=== PATIENT | female | born 1980 | race Caucasian/White ===

== ENCOUNTER → 2017-07-21 15:33 | Outpatient (CLI) | payer OTHER, SELFPAY ==
--- NOTE | 2017-07-21 15:35 | MM_ITS ---
MM Dig screening mamm BI w/CAD CAD Screening ORDERING PHYSICIAN : Martinez Gupta MD PATIENT AGE: 36 years GENDER: Female COMPARISON: Previous mammograms: July 20162015November 2013 INDICATION: Routine screening. No hormones. No new complaints. Previous stereotactic biopsy right breast. Family history. Maternal grandmother breast cancer TECHNIQUE: Standard CC and MLO images were obtained. R2 CAD reviewed. FINDINGS: Low-density breast with generalized moderate fatty replacement. Minimal residual fibroglandular elements.. No significant changes prior study.. No dominant mass nor suspicious calcifications. CAD computer review highlights no areas of concern RIGHT BREAST:Stable appearanceVery minor subtle nodularity possibly due to dermal features again seen just superior to the right breast. These less evident than prior studies 2013 2016.. LEFT BREAST: Nodularity at the left breast laterally has been seen before and unchanged since 2014 exam . Bilateral follow-up in one year IMPRESSION: . Stable bilateral mammogram No new areas of significant concern BI-RADS Category: 2 Benign Finding(s) RECOMMENDED FOLLOW-UP: 1YR - 1 YEAR FOLLOW-UP (A letter has been sent to the patient regarding results of the study.)
== END ==
PROVIDERS: Family Provider Emergency Medicine; PCP Physician Assistant; Visit Provider Obstetrics & Gynecology
DX: Z12.31 Encounter for screening mammogram for malignant neoplasm of breast (principal)
CPT/HCPCS: 77067

== ENCOUNTER → 2018-01-10 18:57 | Outpatient (CLI) | payer OTHER, SELFPAY | PROVIDERS: Visit Provider Nurse Practitioner Family | DX: R30.9 Painful micturition, unspecified (principal) | CPT/HCPCS: 87086; 87088; 87186 ==

== ENCOUNTER → 2018-03-15 11:47 | Outpatient (CLI) | payer OTHER, SELFPAY ==
--- NOTE | 2018-03-15 11:52 | XR_ITS ---
EXAM: XR lumbar spine 6V w bending HISTORY: ITS.REASON: back pain ORDERING PHYSICIAN: Taylor Velázquez PATIENT AGE: 37 years COMPARISON: None FINDINGS: Normal alignment. No fracture or dislocation. No lytic or blastic change. There is mild degenerative disc disease at L4-L5 and L5-S1. There is also mild degenerative disc disease at T11-T12 and T12-L1. Flexion and extension views show no abnormal subluxation. Bilateral tubal ligation clips are present. IMPRESSION: Degenerative disc disease T11-T12, T12-L1, L4-L5, and L5-S1
== END ==
PROVIDERS: PCP Emergency Medicine; Visit Provider Nurse Practitioner Family
DX: M54.5 Low back pain (principal)
CPT/HCPCS: 72114

== ENCOUNTER → 2019-01-11 16:48 | Outpatient (CLI) | payer OTHER, SELFPAY ==
--- NOTE | 2019-01-11 16:49 | MM_ITS ---
PROCEDURE: MM DIG SCREENING MAMM BI W/CAD CLINICAL INDICATION: screening There is a history of breast cancer in the patient's maternal grandmother. There has been a previous biopsy right breast for benign disease. COMPARISON: DMDB DIG MAMM-DX TERESA from 07/19/2015 [facility]B DIG MAMM-SCREEN [facility] W/CAD from 07/20/2016 [facility] MM Dig screening mamm BI w/CAD from 07/21/2017 TECHNIQUE: Standard CC and MLO images were obtained. R2 CAD reviewed. FINDINGS: The breasts are composed primarily of fat with minimal scattered fibroglandular densities in each breast. There is no suspicious lesion in either breast and no suspicious microcalcifications. IMPRESSION: Fatty type breast parenchyma with no suspicious lesions seen BI-RAD Category: 1 Negative FOLLOW-UP: 1YR 1 Year Follow-up (A letter has been sent to the patient regarding results of the study.) Dictated by: Dr. Jorge Higginbotham MD 01/13/2019 13:[address] Jorge Higginbotham MD in [place] 01/13/2019 13:28
== END ==
PROVIDERS: PCP Physician Assistant; Visit Provider Obstetrics & Gynecology
DX: Z12.31 Encounter for screening mammogram for malignant neoplasm of breast (principal)
CPT/HCPCS: 77067

== ENCOUNTER → 2020-01-22 17:47 | Outpatient (CLI) | payer OTHER, SELFPAY ==
[2020-01-22 17:50] LABS: Microscopic, Urine URINE MICROSCOPIC (MICROSCOPIC)
[2020-01-22 18:16] LABS: Appearance,Urine CLEAR (Clear); Bilirubin,Urine Negative (Negative); Blood, Urine TRACE-I (Negative); Color,Urine YELLOW (Yellow); Glucose,Urine (UA) Negative (Negative); Ketones,Urine Negative (Negative); Leukocyte Esterase,Urine Negative (Negative); Nitrate,Urine Negative (Negative); Protein,Urine Negative (Negative); Urobilinogen,Urine 0.2 EU/dl (0.2)
[2020-01-22 18:55] LABS: Bacteria,Urine 3+ /lpf; WBC,Urine Occasional #/hpf (0-3)
== END ==
LOC: LAB 17:48 → LAB.DROPOF 01-23 08:33
PROVIDERS: Visit Provider Nurse Practitioner Obstetrics & Gynecology
DX: Z01.419 Encounter for gynecological examination (general) (routine) without abnormal findings (principal)
CPT/HCPCS: 81001; 87086; 87088; 87186

== ENCOUNTER → 2020-03-07 15:31 | Outpatient (CLI) | payer OTHER, SELFPAY | PROVIDERS: PCP Physician Assistant; Visit Provider Physician Assistant | DX: Z20.822 Contact with and (suspected) exposure to COVID-19 (principal) | CPT/HCPCS: U0003 ==

== ENCOUNTER 2020-05-10 14:37 | Emergency (ER) | payer OTHER, SELFPAY ==
[2020-05-10 15:01] VITALS: BP 130/86; PULSE 100; RESP 16; TEMP 36.8; O2SAT 99; BMI 60.4
--- NOTE | 2020-05-10 15:21 | HMH.EDUTC ---
[facility] [place] Disposition Clinical Impression: Herpes zoster Qualifiers: Herpes zoster complications: without complications Qualified Code(s): B02.9 - Zoster without complications Disposition: Home, Self-Care Condition on Discharge: Good Instructions: Shingles, DI for Shingles Additional Instructions: Take the medications as directed. Follow up with your primary care doctor. Keep the rash covered ? Do not touch or scratch the rash ? Wash your hands often ? Until your rash develops scabs, avoid contact with o women who have never had chickenpox or the chickenpox vaccine; o Premature or low weight infants; and o People with weakened immune systems (such as those with HIV) GO TO THE ER FOR ANY WORSENING SYMPTOMS OR CONCERNS Prescriptions: Ibuprofen [Ibuprofen 800mg Tablet] 800 mg PO Q8HP PRN #30 tab PRN Reason: Moderate Pain Transmission Status: Received by [id number] Acyclovir [Acyclovir 800mg tab] 800 mg PO 5XDAY 7 Days #35 tab Transmission Status: Received by [id number] predniSONE [Deltasone 10mg tablet] 10 mg PO DAILY 9 Days #21 tab Transmission Status: Received by [id number] Referrals: Romulo Noyola MD [Staff Physician] - Time of Disposition: 15:32 Medical Decision Making - Medical Records Medical records reviewed: No: I reviewed the patient's medical records. - Richar Inquiry Pt receiving controlled substance: No Vital Signs: 05/10/20 15:01 05/10/20 15:35 Temperature 98.2 F 98 F Temperature Source Oral Pulse Rate 99 H Pulse Rate [Right] 100 H Respiratory Rate 16 18 Blood Pressure 132/87 Blood Pressure [Right Arm] 130/86 Blood Pressure Mean [Right Arm] 100 Blood Pressure Source [Right Arm] Automatic Cuff Blood Pressure Position [Right Arm] Sitting 02 Sat by Pulse Oximetry 99 Oxygen Delivery Method Room Air [facility] [place] HPI - General Stated complaint: possible shingles Time Seen by Provider: 05/10/20 15:21 Mode of Arrival: Ambulatory Source of Information: Patient Limitations: No Limitations Description of Symptoms (Recalled from Triage Doc. by RN): pt has a rash under her left breast in the shap of a [place] about the size of a baseball. its flat and red. pt states it does not itch and it is not painful. HEENT Symptoms (Recalled from RN notes): No Resp Symptoms (Recalled from RN notes): No Skin Symptoms (Recalled from RN notes): Yes (rash under left breast) MS Symptoms (Recalled from RN notes): No Functional Status (Recalled from RN notes): na - History of Present Illness Provider Complaint: She states that she has had a rash on her left flank for the past 2 days. She denies pain at the site, but she has had tingling at the site. - Related Data Previous Rx's Medication Instructions Recorded Acyclovir [Acyclovir 800mg tab] 800 mg PO 5XDAY 7 Days #35 tab 05/10/20 Ibuprofen [Ibuprofen 800mg 800 mg PO Q8HP PRN #30 tab 05/10/20 Tablet] predniSONE [Deltasone 10mg tablet] 10 mg PO DAILY 9 Days #21 tab 05/10/20 Allergies Allergy/AdvReac Type Severity Reaction Status Date / Time diclofenac [From [employer]throte[employer]] Allergy Unknown I-HIVES Verified 04/17/20 15:51 misoprostol [From [employer]] Allergy Unknown I-HIVES Verified 04/17/20 15:51 - Worker's Comp Is this a Worker's Comp case?: No [facility] History - Hepatitis A Screen Drug use history?: No High risk sexual behaviors?: No History of sexually transmitted infection?: No Currently employed?: No Childcare worker?: No Do you have indoor plumbing?: Yes Do you have electricity?: Yes Attestation statement:: This patient has been screened for Hepatitis A risk factors. I have reviewed the patient's past medical history: Yes Other Medical History: Reports: Other Other Surgeries: Yes: Cholecystectomy, Tubal Ligation Amputation: No Fractures: No Comment: Colonoscopy 1999. BTL (clips) 2001. Lap Cholecystectomy 2016 - Social History Smoking Status: Current ev
[2020-05-10 15:35] VITALS: BP 132/87; PULSE 99; RESP 18; TEMP 36.6
== END 2020-05-10 15:35 | disposition home or self-care (01) ==
PROVIDERS: Emergency Provider Nurse Practitioner Family; PCP Physician Assistant
DX: B02.9 Zoster without complications (principal); F17.210 Nicotine dependence, cigarettes, uncomplicated
CPT/HCPCS: 99202; G0463

== ENCOUNTER 2020-10-01 15:32 | Emergency (ER) | payer OTHER, SELFPAY ==
[2020-10-01 17:38] VITALS: BP 135/103; PULSE 86; RESP 18; TEMP 36.8; O2SAT 97; BMI 39.9
--- NOTE | 2020-10-01 17:56 | HMH.EDUTC ---
[facility] [place] Clinical Impression: Exposure to COVID-19 virus Disposition: Home, Self-Care Condition on Discharge: Good Instructions: DI for COVID-19 (Suspected or Confirmed ), Preventing the Spread of Coronavirus Discharge Instructions Additional Instructions: Drink plenty of fluids. Take tylenol for pain or fever. Return if you begin to have difficulty breathing. Follow up with your regular doctor. GO TO THE ER FOR ANY WORSENING SYMPTOMS Quarantine until you know the results of your covid-19 test. If it is positive, the health department should call you and give you further instructions about your length of Quarantine and other things. Notify your school or workplace of your results and follow their instructions regarding return to work/school. Referrals: Lorrie Medeiros PA [Primary Care Provider] - Time of Disposition: 17:57 Medical Decision Making - Medical Records Medical records reviewed: No: I reviewed the patient's medical records. - Richar Inquiry Pt receiving controlled substance: No Vital Signs: 10/01/20 17:38 10/01/20 18:20 Temperature 98.3 F 98.3 F Temperature Source Oral Pulse Rate 86 Pulse Rate [Left] 86 Respiratory Rate 18 12 Blood Pressure 132/97 H Blood Pressure [Right Arm] 135/103 H Blood Pressure Mean [Right Arm] 113 02 Sat by Pulse Oximetry 97 Orders (Tests/Meds): ORDERS Category Date Time Status Covid-19 Nasal PCR ([facility]) Routine Lab 10/01/20 17:37 Received [facility] [place] HPI - General Stated complaint: covid exposure, no symptoms Time Seen by Provider: 10/01/20 17:40 Mode of Arrival: Ambulatory Source of Information: Patient Limitations: No Limitations Description of Symptoms (Recalled from Triage Doc. by RN): pt wants a covid test. pt is asymptomatic. HEENT Symptoms (Recalled from RN notes): No Resp Symptoms (Recalled from RN notes): No Skin Symptoms (Recalled from RN notes): No MS Symptoms (Recalled from RN notes): No Functional Status (Recalled from RN notes): na - History of Present Illness Provider Complaint: She was exposed to covid-19 around 4 days ago. She denies any symptoms so far. - Related Data Previous Rx's Medication Instructions Recorded Ibuprofen [Ibuprofen 800mg 800 mg PO Q8HP PRN #30 tab 05/10/20 Tablet] Allergies Allergy/AdvReac Type Severity Reaction Status Date / Time diclofenac [From [employer]throtec] Allergy Unknown I-HIVES Verified 09/18/20 17:03 misoprostol [From [employer]th[employer]] Allergy Unknown I-HIVES Verified 09/18/20 17:03 - Worker's Comp Is this a Worker's Comp case?: No [facility] History - Hepatitis A Screen Drug use history?: No High risk sexual behaviors?: No History of sexually transmitted infection?: No Currently employed?: No Childcare worker?: No Do you have indoor plumbing?: Yes Do you have electricity?: Yes Attestation statement:: This patient has been screened for Hepatitis A risk factors. I have reviewed the patient's past medical history: Yes Other Medical History: Reports: Other Other Surgeries: Yes: Cholecystectomy, Tubal Ligation Amputation: No Fractures: No Comment: Colonoscopy 1999. BTL (clips) 2001. Lap Cholecystectomy 2015 - Social History Smoking Status: Current every day smoker Tobacco Type: cigarettes # Packs/Day (cigarettes): 1 Alcohol Intake: never Alcohol Intake Frequency:: other Substance Use Type: denies use Occupational Status: employed Household Members: family Family Hx:: No significant family history RAILROAD OPERATING ENGINEER history: Tubal Ligation Comment: #1 1998, , male, No complications, bottle, 10 lbs. 4 oz., 20 1/4 long.. #2 2001, , Female, no complications, Bottle, 10 lb. 6 oz. 21.5 long. ROS Obtained: Yes All systems reviewed & no additional complaints - Constitutional Constitutional: Reports system reviewed and no additional complaints, except as docu - Eyes Eyes: Reports system reviewed and no additional complaints, exc
[2020-10-01 18:20] VITALS: BP 132/97; PULSE 86; RESP 12; TEMP 36.8
== END 2020-10-01 18:20 | disposition home or self-care (01) ==
PROVIDERS: Emergency Provider Nurse Practitioner Family; PCP Physician Assistant
DX: Z20.822 Contact with and (suspected) exposure to COVID-19 (principal); F17.210 Nicotine dependence, cigarettes, uncomplicated
CPT/HCPCS: 99202; G0463; U0003

== ENCOUNTER → 2020-10-17 18:45 | Outpatient (CLI) | payer OTHER, SELFPAY ==
[2020-10-17 19:06] LABS: Basophils # 0.1 K/mm3 (0-0.2); Basophils % 0.7 % (0.1-2.0); Eosinophils # 0.2 K/mm3 (0.0-0.4); Hematocrit 42.5 % (37.0-47.0); Hemoglobin 13.9 g/dL (12.2-16.2); Lymphocytes # 2.4 K/mm3 (0.7-4.5); Lymphocytes % 19.8 % (10-50); Mean Corpuscular HGB Conc 32.6 g/dL (31.8-35.4); Mean Corpuscular Hemoglobin 28.7 pg (27.0-31.2); Mean Corpuscular Volume 87.9 fl (81-99); Monocytes # 0.6 K/mm3 (0.1-1.0); Neutrophils # 8.7 K/mm3 (1.8-7.8); Neutrophils % 72.5 % (37.0-80.0); Platelet Count 395 K/mm3 (142-424); Red Blood Count 4.83 M/mm3 (4.20-5.40); Red Cell Distribution Width 13.4 % (11.5-17.5)
[2020-10-17 20:35] LABS: Alanine Aminotransferase 16 U/L (12-78); Albumin Level 4.5 g/dl (3.5-5.0); Albumin/Globulin Ratio 1.6 (1.1-1.8); Alkaline Phosphatase 90 U/L (38-126); Anion Gap 17.3 mEq/L (5-15); Aspartate Amino Transferase 22 U/L (14-36); Bilirubin,Direct 0.1 mg/dl (0.0-0.4); Bilirubin,Indirect 0.2 mg/dL (0.0-0.9); Bilirubin,Total 0.3 mg/dl (0.2-1.3); Bilirubin,Unconjugated 0.2 mg/dL (0.0-1.1); Blood Urea Nitrogen 21 mg/dl (7-17); Calcium 8.9 mg/dl (8.4-10.2); Carbon Dioxide 21 mmol/L (22.0-30.0); Chloride 104 mmol/L (98-107); Chol/HDL Ratio 3.9 (1-3.5); Cholesterol 185 mg/dl (140-200); Estimated Glomerular Filt Rate 69 ml/min (>60); GFR (African American) 83 ML/MIN (>60); Globulin 2.9 g/dL (1.3-3.2); Glucose 75 mg/dl (74-100); HDL Cholesterol 47 mg/dl (40-60); Potassium 4.3 mmoL/L (3.5-5.1); Sodium 138 mmol/L (136-145); Total Protein,Serum 7.4 g/dl (6.3-8.2); Triglycerides 89 mg/dl (30-150); VLDL Cholesterol 18 mg/dL (0-40)
[2020-10-17 20:47] LABS: Direct LDL Cholesterol 116.46 mg/dL (100-129)
[2020-10-17 20:52] LABS: 25-OH Vitamin D, Total 41.6 ng/mL (30-100)
[2020-10-17 20:53] LABS: T4 (Thyroxine) 10.4 ug/dl (5.53-11.0)
[2020-10-17 21:06] LABS: Thyroid Stimulating Hormone 1.11 uIU/mL (0.465-4.68)
== END ==
PROVIDERS: Visit Provider Nurse Practitioner Family
DX: R10.11 Right upper quadrant pain (principal); R11.0 Nausea; E66.9 Obesity, unspecified; Z68.41 Body mass index [BMI] 40.0-44.9, adult
CPT/HCPCS: 80053; 80061; 80076; 82306; 84436; 84443; 85025

== ENCOUNTER → 2020-11-18 15:29 | Outpatient (CLI) | payer OTHER, SELFPAY | PROVIDERS: PCP Physician Assistant; Visit Provider Nurse Practitioner | DX: Z20.822 Contact with and (suspected) exposure to COVID-19 (principal); U07.1 COVID-19 | CPT/HCPCS: C9803; U0003; U0005 ==

== ENCOUNTER → 2020-12-17 15:21 | Outpatient (CLI) | payer OTHER, SELFPAY ==
--- NOTE | 2020-12-17 15:21 | US_ITS ---
PROCEDURE: US TRANSVAGINAL CLINICAL INDICATION: right ovary mass COMPARISON: No exams were available for comparison FINDINGS: The uterus is 7 x 4 x 5 cm with a combined endometrial thickness mm. No uterine mass evident. Left ovary is 2 x 0.6 cm has unremarkable appearance. The right ovary is 2.2 point cm and contains a 1.8 cm cyst. Low level echoes are present within the cyst IMPRESSION: 2 cm right ovarian cyst. Low level echoes are present suggesting hemorrhagic cyst. Consider 3 month follow-up to confirm resolution. Most recent CT is not available at this institution for comparison. Dictated by: Kike Alejandra MD 12/17/2020 19:43 Kike Alejandra MD in [place] 12/17/2020 19:43
== END ==
PROVIDERS: PCP Physician Assistant; Visit Provider Nurse Practitioner Family
DX: N83.8 Other noninflammatory disorders of ovary, fallopian tube and broad ligament (principal)
CPT/HCPCS: 76830

== ENCOUNTER → 2021-02-25 16:59 | Outpatient (CLI) | payer OTHER, SELFPAY ==
--- NOTE | 2021-02-25 17:02 | XR_ITS ---
PROCEDURE INFORMATION: Exam: XR Right Foot Complete; Alignment Exam date and time: 02/25/2021 5:02 PM Age: 40 years old Clinical indication: Pain; Foot; Right; Additional info: Bilat feet pain TECHNIQUE: Imaging protocol: XR Right foot. Views: 3 or more views. COMPARISON: No relevant prior studies available. FINDINGS: Bones/joints: No acute fracture or dislocation. Plantar and Achilles calcaneal spurs. Mild hallux valgus, with 1st metatarsophalangeal angle of approximately 18 degrees, and slightly increased intermetatarsal angle of 13 degrees. No significant arthritic deformities at the 1st MTP joint. Minimal 1st metatarsal head bunion formation. Type 1 accessory navicular ossicle.There are no lytic skeletal lesions seen. Normal calcaneal pitch approximate 21 degrees. Soft tissues: No acute findings. No radiopaque foreign bodies seen. IMPRESSION: 1. Mild hallux valgus, with minimal 1st metatarsal head bunion formation. 2. Plantar and Achilles calcaneal spurs, correlate for history of plantar fasciitis or Achilles tendinopathy. 3. No acute fracture or dislocation.
--- NOTE | 2021-02-25 17:02 | XR_ITS ---
PROCEDURE INFORMATION: Exam: XR Left Foot Complete; Alignment Exam date and time: 02/25/2021 5:02 PM Age: 40 years old Clinical indication: Pain; Foot; Left; Additional info: Feet pain TECHNIQUE: Imaging protocol: XR Left foot. Views: 3 or more views. COMPARISON: No relevant prior studies available. FINDINGS: Bones/joints: There is a bipartite medial hallux sesamoid, which could be developmental versus sesamoid stress fracture of indeterminate age. No other fracture or dislocation. There is a mild hallux valgus deformity, with 1st metatarsophalangeal angle of approximately 23 degrees. Slightly elevated 1st intermetatarsal angle of 14 degrees. There is mild 1st metatarsal head bunion formation. There is slight arthritis at the 1st MTP joint with small periarticular spurs, slight lateral joint space narrowing. There is an 8 mm accessory navicular ossicle. There is moderate plantar calcaneal spur and minimal Achilles calcaneal spur. Calcaneal pitch of approximately 18 degrees is within the lower limits of normal.There are no lytic skeletal lesions seen. Soft tissues: No acute findings.No radiopaque foreign bodies seen. IMPRESSION: 1. Mild hallux valgus, with 1st metatarsal head bunion formation, and slight arthritis of the 1st MTP joint. 2. A bipartite medial hallux sesamoid could be developmental, versus stress fracture of indeterminate age. 3. Plantar and Achilles calcaneal spurs, correlate for history of plantar fasciitis or Achilles tendinopathy.
== END ==
PROVIDERS: PCP Emergency Medicine; Visit Provider Nurse Practitioner Family
DX: M79.671 Pain in right foot (principal); M79.672 Pain in left foot
CPT/HCPCS: 73630

== ENCOUNTER → 2021-09-02 09:27 | Outpatient (CLI) | payer OTHER, SELFPAY ==
[2021-09-02 09:53] LABS: Basophils # 0.1 K/mm3 (0-0.2); Basophils % 0.9 % (0.1-2.0); Eosinophils # 0.2 K/mm3 (0.0-0.4); Eosinophils % 2.2 % (0.1-12.0); Hematocrit 40.1 % (37.0-47.0); Hemoglobin 13.6 g/dL (12.2-16.2); Lymphocytes # 1.6 K/mm3 (0.7-4.5); Lymphocytes % 18.4 % (10-50); Mean Corpuscular Hemoglobin 29.2 pg (27.0-31.2); Mean Platelet Volume 6.7 fl (7.4-10.4); Monocytes # 0.4 K/mm3 (0.1-1.0); Monocytes % 4.6 % (1.7-9.3); Neutrophils # 6.5 K/mm3 (1.8-7.8); Neutrophils % 73.8 % (37.0-80.0); Platelet Count 359 K/mm3 (142-424); Red Blood Count 4.66 M/mm3 (4.20-5.40); Red Cell Distribution Width 13.2 % (11.5-17.5); White Blood Count 8.8 K/mm3 (4.8-10.8)
[2021-09-02 10:33] LABS: Anion Gap 9.3 mEq/L (5-15); Blood Urea Nitrogen 14 mg/dl (7-17); Calcium 9.2 mg/dl (8.4-10.2); Carbon Dioxide 28 mmol/L (22.0-30.0); Chloride 105 mmol/L (98-107); Estimated Glomerular Filt Rate 61 ml/min (>60); GFR (African American) 73 ML/MIN (>60); Glucose 102 mg/dl (74-100); Potassium 4.3 mmoL/L (3.5-5.1); Sodium 138 mmol/L (136-145)
== END ==
PROVIDERS: PCP Emergency Medicine; Visit Provider Nurse Practitioner Obstetrics & Gynecology
DX: Z01.818 Encounter for other preprocedural examination (principal); Z20.822 Contact with and (suspected) exposure to COVID-19; N92.0 Excessive and frequent menstruation with regular cycle
CPT/HCPCS: 36415; 80048; 85025; C9803; U0003; U0005

== ENCOUNTER 2021-09-04 06:02 | Day surgery (SDC) | payer OTHER, SELFPAY ==
[2021-09-03 12:38] VITALS: BMI 43.5
[2021-09-04] VITALS (11 sets, daily range): BP systolic 100–146; BP diastolic 49–76; PULSE 62–95; RESP 12–18; TEMP 36.1–36.6; O2SAT 93–99
[2021-09-04 06:37] LABS: Urine Pregnancy, HCG Qual. Negative (Negative)
--- NOTE | 2021-09-04 07:49 | P.PN_ITS ---
[facility] Anesthesia Checklist - Structural Data Admitted From: Home Planned Operative Procedure/s: d/c alka trevino Consent for Planned Operative Procedure(s) Verified: Yes - Additional verifications Anesthesia Reactions: No Hx Blood Transfusions: No Blood Transfusion Reaction: No - Airway Assessment C-Spine Mobility Assessed: Yes TMJ Mobility Assessed: Yes Dentition: Good Dentition - Neurological Assessment Level of Consciousness: Awake, Alert, Appropriate - Anesthesia Plan Anesthesia Risk discussed: Yes Anesthesia Plan: Patient unable to respond/answer ASA Class: II Anesthesia Type: General [facility] History I have reviewed the patient's past medical history: Yes Medical History: Denies:: Cancer, Diabetes Mellitus Type 1, Diabetes Mellitus Type 2, Internal Pacemaker, MRSA, Seizures *Have you ever received a pneumonia vaccine?: No *Have you received a flu vaccine this season?: No Other Medical History: Reports: Other. Denies: Blood Transfusion Reaction Anesthesia experience/problems:: none Other Surgeries: Yes: Cholecystectomy, Colonoscopy, Tubal Ligation. No: Pacemaker Amputation: No Fractures: No - *Social History Last grade of school completed: Some college Smoking Status: Current every day smoker Tobacco Type: cigarettes # Packs/Day (cigarettes): 1 Alcohol Intake: never Alcohol Intake Frequency:: other Substance Use Type: denies use *Occupational Status:: employed Housing: house Household Members: spouse *Travel in the last 8 weeks: None Family Hx:: Cancer ART SPECIALIST history: Tubal Ligation
--- NOTE | 2021-09-04 07:50 | P.OP_ITS ---
Date of procedure: 09/04/21 Pre-op Diagnosis:: Menorrhagia Post-op Diagnosis:: Menorrhagia Procedure performed:: Hysteroscopy, dilation and curettage, NovaSure ablation Surgeon:: Cristiano King MD SEARCH ENGINE OPTIMIZATION STRATEGIST:: Pete Wesley Anesthesia: LMA Estimated blood loss (mL): 50 Clinical Note:: She is a 41-year-old lady who complains of extremely heavy periods. Endometrial biopsy and ultrasound were both negative. After having discussed the risks and benefits she elected to have a hysteroscopy, D&C and NovaSure ablation. Operative findings:: She had an anteverted uterus that sounded to 7 cm. The endometrial cavity length was 6 cm and the width was 4.5 cm. The endometrium appeared thin. Operative note:: She was taken to the operating room where LMA anesthesia was found be adequate. She was prepped and draped in the normal sterile fashion in the lithotomy position. A weighted speculum was placed in the vagina and the anterior lip of the cervix was grasped with a tenaculum. The cervix was then dilated to approximately 6 mm. I then inserted a hysteroscope into the uterine cavity and the findings were as previously dictated. I then performed a gentle curettage with a medium curette. I then sounded the uterus and determine the length of the uterus. I then inserted the NovaSure device and determine the width of the endometrial cavity. The length of the endometrial cavity was 6 cm and the width was 4.5 cm. This was placed into the NovaSure device. I then ran the device through its program. I further inspected the endometrial cavity and was found to be completely charred. I then injected 30 cc of 0.5% ropivacaine at the 3:00, 5:00, 7:00, and 9:00 positions of the cervix. She tolerated procedure well and was taken to the recovery room in excellent condition. All sponge and instrument counts were correct. The estimated blood loss was less than 50 cc. Condition: stable Disposition: PACU Specimens:: Endometrial curettings Complications:: None
--- NOTE | 2021-09-04 07:50 | P.PN_ITS ---
[facility] Anesthesia Record Part I Intake, IV Amount: 500 Estimated blood loss (mL): 50 Urine output (mL): 50 Blood Pressure: 104/72 SaO2: 98 Pulse Rate: 79 Respiratory Rate: 12 Temperature: 97.8 F Patient is:: Awake, Stable Stable to PACU at:: 07:45
--- NOTE | 2021-09-04 08:22 | SUR.PHASEI ---
0812 called and gave detailed report to Veena Phillips RN 0815 transported via stretcher to post op. vital signs stable. rates pain level at a 1. left pt in stable condition with Veena Phillips RN at bedside.
--- NOTE | 2021-09-04 09:34 | P.PN_ITS ---
[facility] Anesthesia Record Part II Discharge Time: 08:12 Destination: Surgical Day Care (OP Surgery) PACU nurse assessment reviewed?: Yes Patient Condition:: Good Anesthesia Complications:: None Swallowing reflex intact?: Yes Cyanosis?: No Blood Pressure: 105/67 Pulse Rate: 62 Temperature: 97.2 F Mental Status: Alert & Oriented Pain level:: 1 Nausea and/or vomitting:: None Intake, IV Amount: 0
== END 2021-09-04 09:08 | disposition home or self-care (01) ==
LOC: OR 06:04
PROVIDERS: PCP Emergency Medicine; Visit Provider Nurse Practitioner Obstetrics & Gynecology
PROC: 0U5B8ZZ Destruction of Endometrium, Via Natural or Artificial Opening Endoscopic (ICD-10-PCS; CPT 58563; principal; 2021-09-04 07:30)
DX: N92.0 Excessive and frequent menstruation with regular cycle (principal); Z72.0 Tobacco use
CPT/HCPCS: 58563; 81025; 96374; J2405

== ENCOUNTER 2023-02-09 13:20 | Outpatient (CLI) | payer BC, SELFPAY ==
[2023-02-09 17:47] LABS: Coronavirus 19, PCR Not Detected (NotDetected); Influenza B, PCR Not Detected (NotDetected)
[2023-02-09 19:21] LABS: Influenza A, PCR Detected (NotDetected)
== END 2023-02-09 23:59 ==
LOC: LAB.DROPOF 02-10 13:21
PROVIDERS: PCP Student in an Organized Health Care Education/Training Program; Visit Provider Student in an Organized Health Care Education/Training Program
DX: R68.89 Other general symptoms and signs (principal); J09.X2 Influenza due to identified novel influenza A virus with other respiratory manifestations
CPT/HCPCS: 87070; 87636

== ENCOUNTER 2023-11-23 14:38 | Outpatient (CLI) | payer BC, SELFPAY ==
[2023-11-23 18:15] LABS: Coronavirus 19, PCR Not Detected (NotDetected); Influenza A, PCR Not Detected (NotDetected); Influenza B, PCR Not Detected (NotDetected)
== END 2023-11-23 23:59 | disposition home or self-care (01) ==
LOC: LAB.DROPOF 11-25 11:11
PROVIDERS: PCP Student in an Organized Health Care Education/Training Program; Visit Provider Student in an Organized Health Care Education/Training Program
DX: R09.81 Nasal congestion (principal)
CPT/HCPCS: 87636

== ENCOUNTER 2024-01-13 15:17 | Outpatient (CLI) | payer BC, SELFPAY ==
[2024-01-13 17:48] LABS: Influenza A, PCR Not Detected (NotDetected); Influenza B, PCR Not Detected (NotDetected)
[2024-01-13 18:19] LABS: Basophils # 0.1 K/mm3 (0-0.2); Basophils % 0.9 % (0.1-2.0); Eosinophils # 0.6 K/mm3 (0.0-0.4); Eosinophils % 7.3 % (0.1-12.0); Hematocrit 43.6 % (37.0-47.0); Hemoglobin 14.3 g/dL (12.2-16.2); Lymphocytes # 1.6 K/mm3 (0.7-4.5); Lymphocytes % 20.2 % (10-50); Mean Corpuscular HGB Conc 32.9 g/dL (31.8-35.4); Mean Corpuscular Hemoglobin 29.8 pg (27.0-31.2); Mean Corpuscular Volume 90.7 fl (81-99); Mean Platelet Volume 7.8 fl (7.4-10.4); Monocytes # 0.4 K/mm3 (0.1-1.0); Monocytes % 4.9 % (1.7-9.3); Neutrophils # 5.2 K/mm3 (1.8-7.8); Neutrophils % 66.7 % (37.0-80.0); Platelet Count 278 K/mm3 (142-424); Red Blood Count 4.81 M/mm3 (4.20-5.40); Red Cell Distribution Width 13.7 % (11.5-17.5); White Blood Count 7.9 K/mm3 (4.8-10.8)
[2024-01-13 18:42] LABS: Albumin Level 4.4 g/dl (3.5-5.0); Chloride 104 mmol/L (98-107); Sodium 138 mmol/L (136-145)
[2024-01-13 18:43] LABS: Potassium 4.1 mmoL/L (3.5-5.1)
[2024-01-13 18:45] LABS: Alanine Aminotransferase 21 U/L (12-78); Albumin/Globulin Ratio 1.6 (1.1-1.8); Anion Gap 10.1 mEq/L (5-15); Aspartate Amino Transferase 28 U/L (14-36); Blood Urea Nitrogen 18 mg/dl (7-17); Carbon Dioxide 28 mmol/L (22.0-30.0); Cholesterol 186 mg/dl (140-200); Estimated Glomerular Filt Rate 44 ml/min (>60); GFR (African American) 54 ML/MIN (>60); Globulin 2.8 g/dL (1.3-3.2); Total Protein,Serum 7.2 g/dl (6.3-8.2); Triglycerides 258 mg/dl (30-150); VLDL Cholesterol 52 mg/dL (0-40)
[2024-01-13 18:46] LABS: Alkaline Phosphatase 103 U/L (38-126); Bilirubin,Total 0.5 mg/dl (0.2-1.3); Calcium 9.2 mg/dl (8.4-10.2); Glucose 108 mg/dl (74-100); HDL Cholesterol 46 mg/dl (40-60); Magnesium 2.1 mg/dl (1.6-2.3)
[2024-01-13 18:56] LABS: Direct LDL Cholesterol 110.79 mg/dL (100-129)
[2024-01-13 19:03] LABS: 25-OH Vitamin D, Total 18.1 ng/mL (30-100)
[2024-01-13 19:17] LABS: Thyroid Stimulating Hormone 1.21 uIU/mL (0.465-4.68)
[2024-01-13 19:21] LABS: Ferritin 63.9 ng/ml (6.24-137)
[2024-01-13 19:37] LABS: Hemoglobin A1C 4.8 % (4.0-6.0)
[2024-01-13 19:56] LABS: Coronavirus 19, PCR Detected (NotDetected)
[2024-01-13 20:29] LABS: Vitamin B12 274 pg/mL (239-931)
[2024-01-13 21:13] LABS: HIV (1&2) Antibody Rapid NONREACTIVE (NONREACTIVE)
[2024-01-15 09:01] LABS: HCV Ab Non Reactive (Non Reactive)
== END 2024-01-13 23:59 | disposition home or self-care (01) ==
LOC: LAB.DROPOF 01-14 09:05
PROVIDERS: PCP Student in an Organized Health Care Education/Training Program; Visit Provider Student in an Organized Health Care Education/Training Program
DX: Z13.220 Encounter for screening for lipoid disorders (principal); Z13.1 Encounter for screening for diabetes mellitus; Z11.59 Encounter for screening for other viral diseases; Z13.21 Encounter for screening for nutritional disorder; Z13.29 Encounter for screening for other suspected endocrine disorder; Z11.4 Encounter for screening for human immunodeficiency virus [HIV]; R20.2 Paresthesia of skin; R09.81 Nasal congestion; E55.9 Vitamin D deficiency, unspecified; U07.1 COVID-19
CPT/HCPCS: 80050; 80053; 80061; 82306; 82607; 82728; 83036; 83735; 84443; 85025; 86803; 87389; 87636

== ENCOUNTER 2024-05-25 15:00 | Outpatient (CLI) | payer BC, SELFPAY ==
--- NOTE | 2024-05-25 15:03 | XR_ITS ---
FINAL REPORT CLINICAL HISTORY: Low back pain COMPARISON: 03/15/2018 FINDINGS: LUMBOSACRAL SPINE SERIES Five views of the lumbosacral spine were obtained. There is no fracture present. There is no malalignment. The vertebrae are normal in height. There is moderate disc space narrowing at L4-5 and L5-S1. Bilateral tubal ligation clips are identified. IMPRESSION: Degenerative changes without acute process. Reviewed, Interpreted and Dictated by John Nyalor MD Transcribed by Nohemy Hoover Authenticated and [facility]
== END 2024-05-25 23:59 | disposition home or self-care (01) ==
LOC: RAD 15:01
PROVIDERS: PCP Nurse Practitioner Family; Visit Provider Nurse Practitioner
DX: M51.360 Other intervertebral disc degeneration, lumbar region with discogenic back pain only (principal)
CPT/HCPCS: 72110

== ENCOUNTER 2024-08-29 17:31 | Outpatient (CLI) | payer BC, SELFPAY | END 2024-08-29 23:59 | disposition home or self-care (01) | LOC: LAB.DROPOF 08-30 11:44 | PROVIDERS: PCP Student in an Organized Health Care Education/Training Program; Visit Provider Student in an Organized Health Care Education/Training Program | DX: N39.0 Urinary tract infection, site not specified (principal) | CPT/HCPCS: 87086 ==

== ENCOUNTER 2024-09-08 16:22 | Outpatient (CLI) | payer BC, SELFPAY ==
[2024-09-08 19:46] LABS: Hematocrit 39.0 % (37.0-47.0); Hemoglobin 13.8 g/dL (12.2-16.2); Immature Granulocytes % 0.3 %; Mean Corpuscular HGB Conc 35.4 g/dL (31.8-35.4); Mean Corpuscular Hemoglobin 30.5 pg (27.0-31.2); Mean Corpuscular Volume 86.1 fl (81-99); Nucleated Red Blood Cells % 0 %; Platelet Count 380 K/mm3 (142-424); Red Blood Count 4.53 M/mm3 (4.20-5.40); Red Cell Distribution Width-SD 41.0 fL; White Blood Count 11.7 K/mm3 (4.8-10.8)
[2024-09-08 19:59] LABS: Alanine Aminotransferase 25 U/L (12-78); Albumin Level 4.5 g/dl (3.5-5.0); Albumin/Globulin Ratio 1.7 (1.1-1.8); Alkaline Phosphatase 94 U/L (38-126); Anion Gap 12.2 mEq/L (5-15); Aspartate Amino Transferase 30 U/L (14-36); Bilirubin,Total 0.4 mg/dl (0.2-1.3); Blood Urea Nitrogen 19 mg/dl (7-17); Calcium 9.8 mg/dl (8.4-10.2); Carbon Dioxide 26 mmol/L (22.0-30.0); Chloride 105 mmol/L (98-107); Creatinine,Serum 1.10 mg/dl (0.52-1.04); Estimated Glomerular Filt Rate 53 ml/min (>60); GFR (African American) 65 ML/MIN (>60); Globulin 2.7 g/dL (1.3-3.2); Glucose 94 mg/dl (74-100); Potassium 4.2 mmoL/L (3.5-5.1); Sodium 139 mmol/L (136-145); Total Protein,Serum 7.2 g/dl (6.3-8.2)
== END 2024-09-08 23:59 | disposition home or self-care (01) ==
LOC: LAB.DROPOF 09-09 10:03
PROVIDERS: PCP Family Medicine; Visit Provider Family Medicine
DX: N17.9 Acute kidney failure, unspecified (principal); R31.9 Hematuria, unspecified
CPT/HCPCS: 80053; 85025; 87086

== ENCOUNTER 2024-09-15 15:24 | Outpatient (CLI) | payer BC, SELFPAY ==
[2024-09-15 15:36] LABS: Microscopic, Urine URINE MICROSCOPIC (MICROSCOPIC)
[2024-09-15 16:03] LABS: Bilirubin,Urine Negative (Negative); Color,Urine YELLOW (Yellow); Glucose,Urine (UA) Negative (Negative); Ketones,Urine Negative (Negative); Leukocyte Esterase,Urine Negative (Negative); PH,Urine 6.0 (5.0-8.5); Protein,Urine Negative (Negative); Specific Gravity, Urine 1.010 (1.005-1.030); Urobilinogen,Urine 0.2 EU/dl (0.2)
[2024-09-15 18:40] LABS: WBC,Urine Occasional #/hpf (0-3)
== END 2024-09-15 23:59 | disposition home or self-care (01) ==
LOC: LAB 15:25
PROVIDERS: PCP Family Medicine; Visit Provider Family Medicine
DX: R10.9 Unspecified abdominal pain (principal); R31.9 Hematuria, unspecified; N17.9 Acute kidney failure, unspecified
CPT/HCPCS: 81001

== ENCOUNTER 2024-09-22 15:13 | Outpatient (CLI) | payer BC, SELFPAY ==
--- NOTE | 2024-09-22 15:30 | CT_ITS ---
FINAL REPORT TECHNIQUE: Noncontrast CT exam of the abdomen and pelvis. This study was performed with techniques to keep radiation doses as low as reasonably achievable (ALARA). Individualized dose reduction techniques using automated exposure control or adjustment of mA and/or kV according to the patient's size were employed. CLINICAL HISTORY: kidney stone, right flank pain. COMPARISON: None FINDINGS: Abdomen: Lung bases are clear. Liver, spleen, pancreas and adrenal glands have a normal CT appearance in their limited unenhanced state. The kidneys demonstrate a tiny 2 mm mid right calyceal stone, nonobstructing. No evidence of hydronephrosis is seen. No obvious renal mass is present. No ureteral stones are present. Pelvis: No distal ureteral stones are seen. Bladder is unremarkable. No fluid collection or adenopathy is seen. The appendix is normal in appearance. The uterus and ovaries are unremarkable. IMPRESSION: Tiny 2 mm mid right calyceal stone, without evidence of hydronephrosis. Otherwise, unremarkable CT of the abdomen and pelvis. Reviewed, Interpreted and Dictated by Mahesh Johnson MD Transcribed by Tamiko Morrow Authenticated and [facility]
== END 2024-09-22 23:59 | disposition home or self-care (01) ==
LOC: RAD 15:13
PROVIDERS: PCP Family Medicine; Visit Provider Family Medicine
DX: N20.0 Calculus of kidney (principal); N17.9 Acute kidney failure, unspecified
CPT/HCPCS: 74176

== ENCOUNTER 2024-09-25 16:46 | Outpatient (CLI) | payer BC, SELFPAY ==
--- NOTE | 2024-09-25 17:00 | MM_ITS ---
PROCEDURE INFORMATION: Exam: MG Bilateral Screening 3D Mammography Exam date and time: 09/25/2024 4:50 PM Age: 44 years old Clinical indication: Screening. No family history of breast cancer. TECHNIQUE: Imaging protocol: Bilateral Screening tomosynthesis and 2D mammography including computer-aided detection (CAD) when performed. COMPARISON: 1. MG MM DIG SCREENING MAMM BI W/CAD 01/11/2019 4:54 PM 2. MG [facility] MM Dig screening mamm BI w/CAD 07/21/2017 3:46 PM 3. MG DMSB DIG MAMM-SCREEN TERESA W/CAD 07/20/2016 3:48 PM 4. MG DMDB DIG MAMM-DX TERESA 07/19/2015 3:25 PM FINDINGS: MAMMOGRAPHY: Breast composition: The breasts are almost entirely fatty. Mass: No suspicious mass. Architectural distortion: None. Calcifications: No suspicious calcifications. Asymmetric density: None. Skin thickening: None. Axillary adenopathy: None. IMPRESSION: No mammographic evidence of malignancy. Annual screening is recommended unless otherwise clinically indicated. ASSESSMENT: BI-RADS Category 1: Negative.
== END 2024-09-25 23:59 | disposition home or self-care (01) ==
LOC: RAD 16:47
PROVIDERS: PCP Family Medicine; Referring Provider Family Medicine; Visit Provider Family Medicine
DX: Z12.31 Encounter for screening mammogram for malignant neoplasm of breast (principal); R92.313 Mammographic fatty tissue density, bilateral breasts
CPT/HCPCS: 77063; 77067

== ENCOUNTER 2024-10-02 16:00 | Outpatient (CLI) | payer BC, SELFPAY ==
[2024-10-02 16:38] LABS: Microscopic, Urine URINE MICROSCOPIC (MICROSCOPIC)
[2024-10-02 18:51] LABS: Bilirubin,Urine Negative (Negative); Color,Urine YELLOW (Yellow); Glucose,Urine (UA) Negative (Negative); Ketones,Urine Negative (Negative); Leukocyte Esterase,Urine Negative (Negative); PH,Urine 6.0 (5.0-8.5); Protein,Urine Negative (Negative); Specific Gravity, Urine <= 1.005 (1.005-1.030); Urobilinogen,Urine 0.2 EU/dl (0.2)
[2024-10-02 20:31] LABS: Bacteria,Urine Trace /lpf; WBC,Urine Occasional #/hpf (0-3)
== END 2024-10-02 23:59 | disposition home or self-care (01) ==
LOC: LAB.DROPOF 10-04 10:12
PROVIDERS: PCP Urology; Visit Provider Urology
DX: N39.3 Stress incontinence (female) (male) (principal); R31.9 Hematuria, unspecified
CPT/HCPCS: 81001

== ENCOUNTER 2024-10-30 14:56 | Outpatient (CLI) | payer BC, SELFPAY ==
[2024-10-30 14:34] LABS: Microscopic, Urine URINE MICROSCOPIC (MICROSCOPIC)
[2024-10-30 15:52] LABS: Bilirubin,Urine Negative (Negative); Color,Urine YELLOW (Yellow); Glucose,Urine (UA) Negative (Negative); Ketones,Urine TRACE (Negative); Leukocyte Esterase,Urine Negative (Negative); PH,Urine 5.5 (5.0-8.5); Protein,Urine TRACE (Negative); Specific Gravity, Urine >= 1.030 (1.005-1.030); Urobilinogen,Urine 0.2 EU/dl (0.2)
[2024-10-30 16:05] LABS: Bacteria,Urine Trace /lpf; RBC,Urine Occasional #/hpf (0-3); WBC,Urine Occasional #/hpf (0-3)
== END 2024-10-30 23:59 | disposition home or self-care (01) ==
LOC: LAB.DROPOF 14:56
PROVIDERS: PCP Urology; Visit Provider Urology
DX: N39.3 Stress incontinence (female) (male) (principal); R31.9 Hematuria, unspecified
CPT/HCPCS: 81001

== ENCOUNTER 2025-01-19 12:27 | Emergency (ER) | payer BC, SELFPAY ==
[2025-01-19] VITALS (9 sets, daily range): BP systolic 105–158; BP diastolic 57–101; PULSE 77–103; RESP 16–18; TEMP 36.6–36.8; O2SAT 92–100; BMI 43.2
[2025-01-19 12:51] LABS: Microscopic, Urine URINE MICROSCOPIC (MICROSCOPIC)
--- NOTE | 2025-01-19 12:52 | ED_ITS ---
<Statement entered by Pati Nguyen DO - 01/21/25 22:11> I was consulted by the DAY, and we discussed the complexity of problems being addressed. I approve the treatment and management plan for this patient's care in the emergency department, thus performing a substantial portion of the medical decision making. Pati Nguyen DO Discharge Plan Disposition Chief Complaint: Abdominal Pain Prescriptions Prescriptions: No Action ondansetron 4 mg tablet,disintegrating 4 mg PO Q8H PRN (Reason: nausea and vomiting) Qty: 14 0RF Referrals Follow up/Referrals: Areli Causey APRN [Primary Care Provider, Family Practice] - See instructions Instructions Patient Instructions: DI for Acute Abdominal Pain Print Language Print Language: Kinyarwanda Discharge ED Provider: Seelna Lujan General Adult HPI <Gail Aden (ED), CARLITO - Last Filed: 01/19/25 15:57> General Chief complaint: Abdominal Pain Stated complaint: abd pain Time Seen by Provider: 01/19/25 12:43 Mode of Arrival: Ambulatory Source of Information: Patient Description of Symptoms (Recalled from ER Triage Doc. by RN): Patient states that she has been having diffuse abdominal pain and cramping since yesterday morning. Patient states that she has also had burning with urination. Had a very small BM yesterday. Took 3 x Ibuprofen this morning at 0800 and 1x 500 mg Tylenol at 0900. History of Present Illness HPI narrative: 44-year-old female presents to the ED today for complaint of lower abdominal pain that started yesterday and worsened last night. She says she had cramping- like pain) pain that went around to her back. She does have a right kidney that went into failure once and caused her to be in the hospital for a week. She does have some cysts on her ovary on the right side. She is concerned about that she has had the shakes and chills but no fever. She has been nauseous but no vomiting or diarrhea. She did have a bowel movement that was kind of painful but nothing else. States that when she gets jolted her entire abdomen hurts. She is most tender in her right upper quadrant but she does not have a gallbladder. She does have some burning with urination. Related Data Previous Rx's ?Medication ?Instructions ?Recorded ondansetron 4 mg disintegrating 4 mg PO Q8H PRN nausea and 08/11/25 tablet vomiting #14 tabs Allergies Allergy/AdvReac Type Severity Reaction Status Date / Time clindamycin Allergy Mild Verified 10/02/24 13:54 diclofenac (From [facility]) Allergy Unknown I-HIVES Verified 10/02/24 13:54 misoprostol (From [facility]) Allergy Unknown I-HIVES Verified 10/02/24 13:54 PFSH <Gail Aden (ED), TECHNOLOGY DIRECTOR - Last Filed: 01/19/25 15:57> PFS Disclaimer: The information contained in this section may have been updated after the patient was seen, as this information can be updated by other users. Medical History Cervical cancer screening Breast cancer screening Low back pain Calcaneal spur of both feet Plantar fasciitis, left Plantar fasciitis, right Abnormal Pap smear of cervix Surgical History History of cholecystectomy History of endometrial ablation H/O tubal ligation Family History Family/Other No significant family history Social History Smoking Status: Current every day smoker tobacco type: cigarettes packs per day: 1 alcohol intake: never substance use type: denies use current occupational status: employed Travel in the last 8 weeks?: None household members: spouse housing: house current occupation: caffeine: Yes Have you lived/traveled outside [place] in past 30 days?: No Contact w/someone who lives/traveled outside US past 30 days?: No Exposure to someone with infectious disease in past 14 days?: No Do you have a fever (greater than 100.4 F or 38 C)?: No Have you tested positive for COVID-19?: No Exposed to someone with COVID-19 in past 14 days?: No Do you have a sore throat?: No Do you have a cough?: No Do you have any weakness?: No Do you have any diarrhea?: No Are you experiencing any unusual bleeding?: No Do you have any muscle aches/pain?: No Do you have any abdominal pain?: No Are you experiencing loss of taste or smell?: No Other Medical History Have you received the Flu Vaccine for this season: No Have you received the Pneumonia Vaccine: No <Gail Mathisjose (ED), TECHNOLOGY DIRECTOR - Last Filed: 01/19/25 15:57> ROS Obtained: Yes Systems reviewed as appropriate & no additional complaints except as documented Constitutional Constitutional: Reports as per HPI Physical Exam <Gail Mathisjose (ED), TECHNOLOGY DIRECTOR - Last Filed: 01/19/25 15:57> General General appearance: alert Head Head exam: normocephalic Eye Eye exam: Present PERRL and EOMI ENT ENT exam: Present normal oropharynx and mucous membranes moist Neck Neck exam: Present full ROM and trachea midline Respiratory Respiratory exam: Present normal lung sounds bilaterally Cardiovascular Cardiovascular exam: Present normal rhythm, tachycardia, normal heart sounds, +S1 and +S2 Abdominal Exam Abdominal exam: Present soft and normal bowel sounds Abdominal tenderness: Present diffuse Extremities Exam Extremities exam: Present full ROM and normal capillary refill Neurological Exam Neurological exam: Present alert and oriented X3 Skin Skin exam: Present warm, dry and intact Medical Decision Making <Gail Kiljose (ED), TECHNOLOGY DIRECTOR - Last Filed: 01/19/25 15:57> Medical Records Screening: Per USPSTF and CDC recommendations, given the prevalence of disease in our region, it is our hospital?s policy to screen for HIV and viral Hepatitis for all patients aged 18 and over and those with ongoing risk factors. Richar Inquiry Pt receiving controlled substance: No Richar was queried for this patient: No Vital Signs: 01/19/25 12:38 01/19/25 13:00 01/19/25 14:00 Temperature 98.3 F Temperature Source Oral Pulse Rate 91 H Pulse Rate [Right Brachial] 103 H Respiratory Rate 16 Blood Pressure 124/73 105/57 L Blood Pressure [Right Arm] 158/101 H Blood Pressure Mean Blood Pressure Mean [Right Arm] 120 Blood Pressure Source [Right Arm] Automatic Cuff Blood Pressure Position [Right Arm] Sitting 02 Sat by Pulse Oximetry 99 98 92 L Oxygen Delivery Method Room Air Room Air Room Air 01/19/25 14:30 01/19/25 14:48 01/19/25 15:00 Temperature Temperature Source Pulse Rate 77 86 77 Pulse Rate [Right Brachial] Respiratory Rate 18 Blood Pressure 122/63 119/70 Blood Pressure [Right Arm] Blood Pressure Mean 82 Blood Pressure Mean [Right Arm] Blood Pressure Source [Right Arm] Blood Pressure Position [Right Arm] 02 Sat by Pulse Oximetry 100 99 93 L Oxygen Delivery Method 01/19/25 15:30 01/19/25 15:45 Temperature Temperature Source Pulse Rate 78 84 Pulse Rate [Right Brachial] Respiratory Rate 16 Blood Pressure 134/74 Blood Pressure [Right Arm] Blood Pressure Mean 84 Blood Pressure Mean [Right Arm] Blood Pressure Source [Right Arm] Blood Pressure Position [Right Arm] 02 Sat by Pulse Oximetry 96 98 Oxygen Delivery Method Lab Data Lab Results 01/19/25 12:29: Urine Color Yellow, Urine Appearance Slightly cloudy, Urine pH 7.0, Ur Specific [place] 1.010, Urine Protein Trace, Urine Glucose (UA) Negative, Urine Ketones Negative, Urine Blood 1+ A, Urine Nitrate Negative, Urine Bilirubin Negative, Urine Urobilinogen 0.2, Ur Leukocyte Esterase Negative, Urine RBC 3-5, Urine WBC 3-5, Ur Squamous Epith Cells 5-10, Urine Bacteria 1+ 01/19/25 12:40: WBC 13.8 H, RBC 4.86, Hgb 14.3, Hct 42.4, MCV 87.2, MCH 29.4, MCHC 33.7, RDW 12.7, Plt Count 313, MPV 9.2, Neut % (Auto) 79.2, Lymph % (Auto) 15.3, Trigg % (Auto) 4.3, Eos % (Auto) 0.6, Baso % (Auto) 0.2, Neut # (Auto) 10.9 H, Lymph # (Auto) 2.1, Trigg # (Auto) 0.6, Eos # (Auto) 0.1, Baso # (Auto) 0.0, APTT 26.8, Sodium 142, Potassium 3.6, Chloride 101, Carbon Dioxide 25, Anion Gap 19.6 H, BUN 19 H, Creatinine 1.30 H, Estimated Creat Clear 49, Estimated GFR 44 L, Est GFR ( Amer) 53 L, Glucose 114 H, Calcium 9.5, Magnesium 2.4 H, Total Bilirubin 0.8, AST 30, ALT 31, Alkaline Phosphatase 84, Troponin I < 0.01, Total Protein 9.0 H, Albumin 5.2 H, Globulin 3.8 H, Albumin/Globulin Ratio 1.4, Lipase 53, Urine HCG, Qual Negative 01/19/25 12:40 01/19/25 12:40 Orders (Tests/Meds): ED MEDICATIONS Generic Name Dose Route Start Last Admin Trade Name Frealex PRN Reason Stop Dose Admin Sodium Chloride 10 ml 01/19/25 14:39 01/19/25 14:45 Sodium Chloride 0.9% 10ml Syr (Rad Only) IV 02/18/25 14:38 10 ml NEEDED PRN Administration Maintain IV Site Discontinued Medications Generic Name Dose Route Start Last Admin Trade Name Freq PRN Reason Stop Dose Admin Sodium Chloride 1,000 mls @ 999 mls/hr 01/19/25 12:49 01/19/25 14:31 Sod Chlor 0.9% 1000ml Bag IV 01/19/25 13:49 Infused .Q1H1M ONE Infusion Iopamidol 75 ml 01/19/25 14:39 01/19/25 14:45 Iopamidol-370 (76%);100ml Bottle IV 01/19/25 14:40 75 ml ONCE ONE Administration ORDERS Category Date Time Status CT abdomen pelvis w con Stat Cat Scan 01/19/25 14:27 Completed CBC [Complete Blood Count Auto Diff] Stat Lab 01/19/25 12:40 Completed Comprehensive Metabolic Panel Stat Lab 01/19/25 12:40 Completed Lipase Stat Lab 01/19/25 12:40 Completed Magnesium Stat Lab 01/19/25 12:40 Completed PTT [Activated Partial Thrombo Time] Stat Lab 01/19/25 12:40 Completed Trop I [Troponin I] Stat Lab 01/19/25 12:40 Completed Troponin I Q3H Lab 01/19/25 15:34 Received Troponin I Q3H Lab 01/19/25 19:00 Ordered Urinalysis and Microscopic Stat Lab 01/19/25 12:29 Completed Urine , HCG Qual. Stat Lab 01/19/25 12:40 Completed Medical Decision Narrative: patient is a 44-year-old female presenting to the emergency department for evaluation of abdominal pain. Patient is hemodynamically stable and nontoxic- appearing upon arrival, afebrile. Differential diagnosis includes abdominal pain, SBO, appendicitis and pancreatitis, ovarian cyst rupture, among other. Workup will be conducted with hematologic labs, specific imaging. Initial inventions include crystalloid bolus, analgesics. Initial workup reviewed by me hematologic labs are remarkable for White count 13.8, BUN and creatinine were 19 and 1.3 which are baseline for the patient, mag was a little elevated at 2.4, troponin was less than 0.01, liver function was normal urine did have 1+ blood but negative for leuks and nitrates. Patient's imaging which included a CT scan today showed findings for inflammatory changes around the sigmoid colon consistent with acute uncomplicated diverticulitis. I talked to Dr. Nguyen about this and we will treat with Augmentin outpatient. She will follow-up with Dr. Mercedes outpatient for this. Patient is safe for discharge home. I was consulted by the DAY, and we discussed the complexity of problems being addressed. I approved the treatment and management plan for this patient's care in the emergency department, thus performing a substantial portion of the medical decision making. At 3 P COURTNEY given to oncoming physician to follow up CT with DAY Selena Lujan MD <Selena Lujan MD - Last Filed: 01/19/25 14:51> Vital Signs: 01/19/25 12:38 01/19/25 13:00 01/19/25 14:00 Temperature 98.3 F Temperature Source Oral Pulse Rate 91 H Pulse Rate [Right Brachial] 103 H Respiratory Rate 16 Blood Pressure 124/73 105/57 L Blood Pressure [Right Arm] 158/101 H Blood Pressure Mean Blood Pressure Mean [Right Arm] 120 Blood Pressure Source [Right Arm] Automatic Cuff Blood Pressure Position [Right Arm] Sitting 02 Sat by Pulse Oximetry 99 98 92 L Oxygen Delivery Method Room Air Room Air Room Air 01/19/25 14:30 01/19/25 14:48 01/19/25 15:00 Temperature Temperature Source Pulse Rate 77 86 77 Pulse Rate [Right Brachial] Respiratory Rate 18 Blood Pressure 122/63 119/70 Blood Pressure [Right Arm] Blood Pressure Mean 82 Blood Pressure Mean [Right Arm] Blood Pressure Source [Right Arm] Blood Pressure Position [Right Arm] 02 Sat by Pulse Oximetry 100 99 93 L Oxygen Delivery Method 01/19/25 15:30 01/19/25 15:45 Temperature Temperature Source Pulse Rate 78 84 Pulse Rate [Right Brachial] Respiratory Rate 16 Blood Pressure 134/74 Blood Pressure [Right Arm] Blood Pressure Mean 84 Blood Pressure Mean [Right Arm] Blood Pressure Source [Right Arm] Blood Pressure Position [Right Arm] 02 Sat by Pulse Oximetry 96 98 Oxygen Delivery Method Lab Data Lab Results 01/19/25 12:29: Urine Color Yellow, Urine Appearance Slightly cloudy, Urine pH 7.0, Ur Specific [place] 1.010, Urine Protein Trace, Urine Glucose (UA) Negative, Urine Ketones Negative, Urine Blood 1+ A, Urine Nitrate Negative, Urine Bilirubin Negative, Urine Urobilinogen 0.2, Ur Leukocyte Esterase Negative, Urine RBC 3-5, Urine WBC 3-5, Ur Squamous Epith Cells 5-10, Urine Bacteria 1+ 01/19/25 12:40: WBC 13.8 H, RBC 4.86, Hgb 14.3, Hct 42.4, MCV 87.2, MCH 29.4, MCHC 33.7, RDW 12.7, Plt Count 313, MPV 9.2, Neut % (Auto) 79.2, Lymph % (Auto) 15.3, Trigg % (Auto) 4.3, Eos % (Auto) 0.6, Baso % (Auto) 0.2, Neut # (Auto) 10.9 H, Lymph # (Auto) 2.1, Trigg # (Auto) 0.6, Eos # (Auto) 0.1, Baso # (Auto) 0.0, APTT 26.8, Sodium 142, Potassium 3.6, Chloride 101, Carbon Dioxide 25, Anion Gap 19.6 H, BUN 19 H, Creatinine 1.30 H, Estimated Creat Clear 49, Estimated GFR 44 L, Est GFR ( Amer) 53 L, Glucose 114 H, Calcium 9.5, Magnesium 2.4 H, Total Bilirubin 0.8, AST 30, ALT 31, Alkaline Phosphatase 84, Troponin I < 0.01, Total Protein 9.0 H, Albumin 5.2 H, Globulin 3.8 H, Albumin/Globulin Ratio 1.4, Lipase 53, Urine HCG, Qual Negative Orders (Tests/Meds): ED MEDICATIONS Generic Name Dose Route Start Last Admin Trade Name Freq PRN Reason Stop Dose Admin Sodium Chloride 10 ml 01/19/25 14:39 01/19/25 14:45 Sodium Chloride 0.9% 10ml Syr (Rad Only) IV 02/18/25 14:38 10 ml NEEDED PRN Administration Maintain IV Site Discontinued Medications Generic Name Dose Route Start Last Admin Trade Name Freq PRN Reason Stop Dose Admin Sodium Chloride 1,000 mls @ 999 mls/hr 01/19/25 12:49 01/19/25 14:31 Sod Chlor 0.9% 1000ml Bag IV 01/19/25 13:49 Infused .Q1H1M ONE Infusion Iopamidol 75 ml 01/19/25 14:39 01/19/25 14:45 Iopamidol-370 (76%);100ml Bottle IV 01/19/25 14:40 75 ml ONCE ONE Administration ORDERS Category Date Time Status CT abdomen pelvis w con Stat Cat Scan 01/19/25 14:27 Completed CBC [Complete Blood Count Auto Diff] Stat Lab 01/19/25 12:40 Completed Comprehensive Metabolic Panel Stat Lab 01/19/25 12:40 Completed Lipase Stat Lab 01/19/25 12:40 Completed Magnesium Stat Lab 01/19/25 12:40 Completed PTT [Activated Partial Thrombo Time] Stat Lab 01/19/25 12:40 Completed Trop I [Troponin I] Stat Lab 01/19/25 12:40 Completed Troponin I Q3H Lab 01/19/25 15:34 Received Troponin I Q3H Lab 01/19/25 19:00 Ordered Urinalysis and Microscopic Stat Lab 01/19/25 12:29 Completed Urine , HCG Qual. Stat Lab 01/19/25 12:40 Completed Medical Decision Narrative: patient is a 44-year-old female presenting to the emergency department for evaluation of abdominal pain. Patient is hemodynamically stable and nontoxic- appearing upon arrival, afebrile. Differential diagnosis includes abdominal pain, SBO, appendicitis and pancreatitis, ovarian cyst rupture, among other. Workup will be conducted with hematologic labs, specific imaging. Initial inventions include crystalloid bolus, analgesics. Initial workup reviewed by me [hematologic labs are remarkable for:]. [Imaging informally interpreted by me and remarkable for:] [Formal imaging read remarkable for:] Upon repeat evaluation [patient's pain is improved, appears better perfused, appears the same, appears worse, etc.]. Due to this [additional interventions, patient is appropriate for discharge, patient requires admission, etc.]. I was consulted by the DAY, and we discussed the complexity of problems being addressed. I approved the treatment and management plan for this patient's care in the emergency department, thus performing a substantial portion of the medical decision making. At 3 P COURTNEY given to oncoming physician to follow up CT with DAY Selena Lujan MD Critical Care <Selena Ljuan MD - Last Filed: 01/19/25 14:51> Critical Care Time Critical Care Time: No
[2025-01-19 12:54] LABS: Bilirubin,Urine Negative (Negative); Color,Urine YELLOW (Yellow); Glucose,Urine (UA) Negative (Negative); Ketones,Urine Negative (Negative); Leukocyte Esterase,Urine Negative (Negative); PH,Urine 7.0 (5.0-8.5); Protein,Urine TRACE (Negative); Specific Gravity, Urine 1.010 (1.005-1.030); Urobilinogen,Urine 0.2 EU/dl (0.2)
[2025-01-19] MEDS: 0.9 % SODIUM CHLORIDE 1000ML 1,000 ML 999 ML IV (12:55)
[2025-01-19 12:56] LABS: Urine Pregnancy, HCG Qual. Negative (Negative)
[2025-01-19 12:59] LABS: Hematocrit 42.4 % (37.0-47.0); Hemoglobin 14.3 g/dL (12.2-16.2); Immature Granulocytes % 0.4 %; Mean Corpuscular HGB Conc 33.7 g/dL (31.8-35.4); Mean Corpuscular Hemoglobin 29.4 pg (27.0-31.2); Mean Corpuscular Volume 87.2 fl (81-99); Nucleated Red Blood Cells % 0 %; Platelet Count 313 K/mm3 (142-424); Red Blood Count 4.86 M/mm3 (4.20-5.40); Red Cell Distribution Width-SD 40.1 fL; White Blood Count 13.8 K/mm3 (4.8-10.8)
[2025-01-19 13:04] LABS: Bacteria,Urine 1+ /lpf
[2025-01-19 13:04] LABS: Albumin Level 5.2 g/dl (3.5-5.0); Chloride 101 mmol/L (98-107); Potassium 3.6 mmoL/L (3.5-5.1); Sodium 142 mmol/L (136-145)
[2025-01-19 13:07] LABS: Alanine Aminotransferase 31 U/L (12-78); Albumin/Globulin Ratio 1.4 (1.1-1.8); Alkaline Phosphatase 84 U/L (38-126); Anion Gap 19.6 mEq/L (5-15); Aspartate Amino Transferase 30 U/L (14-36); Bilirubin,Total 0.8 mg/dl (0.2-1.3); Blood Urea Nitrogen 19 mg/dl (7-17); Calcium 9.5 mg/dl (8.4-10.2); Carbon Dioxide 25 mmol/L (22.0-30.0); Creatinine Clearance Estimated 49 mL/min (50-200); Creatinine,Serum 1.30 mg/dl (0.52-1.04); Estimated Glomerular Filt Rate 44 ml/min (>60); GFR (African American) 53 ML/MIN (>60); Globulin 3.8 g/dL (1.3-3.2); Glucose 114 mg/dl (74-100); Lipase 53 U/L (23-300); Magnesium 2.4 mg/dl (1.6-2.3); Total Protein,Serum 9.0 g/dl (6.3-8.2)
[2025-01-19 13:08] LABS: Activated Partial Thrombo Time 26.8 seconds (22.8-30.6)
[2025-01-19 13:19] LABS: Troponin I < 0.01 ng/ml (0.00-0.034)
--- NOTE | 2025-01-19 14:27 | CT_ITS ---
FINAL REPORT TECHNIQUE: After the administration of oral and intravenous contrast, axial images were obtained through the abdomen and pelvis by computed tomography. The study was performed with techniques to keep radiation dose as low as reasonably achievable, (ALARA). Individual dose reduction techniques using automated exposure control or adjustment of mA and/or kV according to the patient's size were employed. CLINICAL HISTORY: abdominal pain COMPARISON: None FINDINGS: Abdomen: The lung bases are clear. The liver parenchyma demonstrates moderate fatty infiltration of the liver. The liver is also enlarged, measuring up to 22 cm in the craniocaudal dimension. The gallbladder is present. Calcified granulomas are present in the spleen. The pancreas, adrenals and kidneys appear unremarkable. The aorta is normal in caliber. There is no free fluid or adenopathy. Pelvis: The appendix is normal in appearance. There is inflammatory change involving the sigmoid colon, in the region with multiple diverticula noted, with associated mild mural thickening and mild adjacent edema. This is best seen on images #96 and 97 of series 3, and is most consistent in appearance with acute uncomplicated diverticulitis. The urinary bladder is unremarkable. There is no free fluid or adenopathy. The uterus is present. There is a left adnexal surgical clip present, and another clip present in the cul-de-sac. IMPRESSION: Inflammatory change surrounding a segment of sigmoid colon with mural thickening and adjacent edema, most consistent in appearance with acute uncomplicated diverticulitis. Hepatomegaly with fatty infiltration of the liver. Reviewed, Interpreted and Dictated by John Naylor MD Transcribed by Tamiko Morrow Authenticated and [facility]
[2025-01-19] MEDS: IOPAMIDOL-370 (76%);100ML BOTTLE 75 ML IV (14:45)
[2025-01-19] MEDS: SODIUM CHLORIDE 0.9% 10ML SYR (RAD ONLY) 10 ML IV (14:45)
--- NOTE | 2025-01-19 15:20 | PC.NURSE ---
KARLIE Gu was able to get the patient to put the BP cuff, and Pulse O2 monitor on.
[2025-01-19 16:03] LABS: Troponin I < 0.01 ng/ml (0.00-0.034)
== END 2025-01-19 16:15 | disposition home or self-care (01) ==
PROVIDERS: Nurse Practitioner; Emergency Provider Student in an Organized Health Care Education/Training Program; PCP Family Medicine
DX: R10.30 Lower abdominal pain, unspecified (principal); F17.210 Nicotine dependence, cigarettes, uncomplicated; Z90.49 Acquired absence of other specified parts of digestive tract; Z90.79 Acquired absence of other genital organ(s)
CPT/HCPCS: 74177; 80053; 81001; 81025; 83690; 83735; 84484; 85025; 85730; 96360; 96361; 99285; J7030; Q9967

== ENCOUNTER 2025-01-23 16:37 | Outpatient (CLI) | payer BC, SELFPAY ==
[2025-01-23 21:50] LABS: Alanine Aminotransferase 31 U/L (12-78); Albumin Level 4.9 g/dl (3.5-5.0); Albumin/Globulin Ratio 1.5 (1.1-1.8); Alkaline Phosphatase 101 U/L (38-126); Anion Gap 17.4 mEq/L (5-15); Aspartate Amino Transferase 34 U/L (14-36); Bilirubin,Total 0.5 mg/dl (0.2-1.3); Blood Urea Nitrogen 19 mg/dl (7-17); Calcium 9.7 mg/dl (8.4-10.2); Carbon Dioxide 22 mmol/L (22.0-30.0); Chloride 105 mmol/L (98-107); Creatinine,Serum 1.10 mg/dl (0.52-1.04); Estimated Glomerular Filt Rate 53 ml/min (>60); GFR (African American) 65 ML/MIN (>60); Globulin 3.2 g/dL (1.3-3.2); Glucose 66 mg/dl (74-100); Potassium 4.4 mmoL/L (3.5-5.1); Sodium 140 mmol/L (136-145); Total Protein,Serum 8.1 g/dl (6.3-8.2)
== END 2025-01-23 23:59 | disposition home or self-care (01) ==
LOC: LAB.DROPOF 01-24 18:21
PROVIDERS: PCP Family Medicine; Visit Provider Student in an Organized Health Care Education/Training Program
DX: N17.9 Acute kidney failure, unspecified (principal); K76.0 Fatty (change of) liver, not elsewhere classified
CPT/HCPCS: 80053